=== PATIENT | male | born 1990 | race Caucasian/White ===

== ENCOUNTER → 2016-09-19 | Outpatient (CLI) | payer OTHER ==
[2016-09-19 19:01] LABS: ALBUMIN 4.5 GM/DL (3.2-5.2); ALBUMIN/GLOBULIN RATIO 1.36 (1.00-1.93); BILIRUBIN,DIRECT 0.2 MG/DL (0.0-0.2); BILIRUBIN,TOTAL 0.8 MG/DL (0.2-1.0); TOTAL PROTEIN 7.8 GM/DL (6.4-8.2)
== END ==
LOC: M LAB 16:14
PROVIDERS: ATTEND Family Medicine
DX: F11.20 Opioid dependence, uncomplicated (principal)

== ENCOUNTER → 2019-02-20 | Outpatient (CLI) | payer BC ==
[2019-02-20 15:05] LABS: HEMATOCRIT 39.6 % (42.0-52.0); HEMOGLOBIN 13.2 g/dl (13.5-17.5); MEAN CORPUSCULAR HGB CONC 33.3 g/dl (32.0-36.5); MEAN CORPUSCULAR VOLUME 81.1 fl (80.0-96.0); PLATELET COUNT, AUTOMATED 255 10^3/uL (150-450); RED BLOOD COUNT 4.88 10^6/uL (4.30-6.10); WHITE BLOOD COUNT 6.7 10^3/uL (4.0-10.0)
--- NOTE | 2019-02-20 15:17 | REP ---
REASON FOR EXAM: Hypothyroidism and anemia. COMPARISON: Multiple, the latest frontal view of the chest obtained as part of a rib series on 08/17/2013. FINDINGS: The superior mediastinal structures are midline. The cardiac silhouette is unremarkable in size, shape, and position. The diaphragmatic surfaces of the lungs are regular, and the costophrenic angles are clear. The pulmonary kinsey are clear. The imaged osseous structures are intact. IMPRESSION: There is no acute cardiopulmonary disease. Electronically Signed by Charan Galarza DO 02/20/2019 03:34 P
[2019-02-20 15:42] LABS: ALBUMIN 4.3 GM/DL (3.2-5.2); ALT/SGPT 38 U/L (12-78); BLOOD UREA NITROGEN 13 MG/DL (7-18); CARBON DIOXIDE LEVEL 29 MEQ/L (21-32); CHLORIDE LEVEL 103 MEQ/L (98-107); CHOLESTEROL LEVEL 141 MG/DL (<200); CHOLESTEROL RISK RATIO 3.279 (<5); CREATININE FOR GFR 0.96 MG/DL (0.70-1.30); GLOMERULAR FILTRATION RATE > 60.0 (>60); GLUCOSE, FASTING 79 MG/DL (70-100); HDL CHOLESTEROL 43 MG/DL (>40); LDL CHOLESTEROL 61 MG/DL (<100); NON-HDL-C 98 MG/DL; SODIUM LEVEL 138 MEQ/L (136-145); TOTAL PROTEIN 7.7 GM/DL (6.4-8.2); TRIGLYCERIDES LEVEL 184 MG/DL (<150)
[2019-02-20 15:45] LABS: TOTAL 25(OH) VITAMIN D 24.2 NG/ML (30.0-100.0)
--- NOTE | 2019-02-20 17:19 | ECGEPIP ---
[facility] Test Date: 2019-02-20 Pat Name: LINDSEY HURTADO Department: Room: - Gender: Male Wedger Machine: PEG : 1990 Requested By: Cassandra Burdick Order Number: [id number] Reading MD: Johnny Robledo Measurements Intervals [place] Rate: 85 P: 55 TN: 143 QRS: 20 QRSD: 114 T: 60 QT: 360 QTc: 428 Interpretive Statements Normal sinus rhythm with sinus arrhythmia Intraventricular conduction delay Comparison tracing not on file Electronically Signed on 02-20-2019 17:18:55 EDT by Johnny Robledo
== END ==
LOC: M LAB 14:21
PROVIDERS: ATTEND Family Medicine
DX: D64.9 Anemia, unspecified (principal); E03.9 Hypothyroidism, unspecified; I10 Essential (primary) hypertension

== ENCOUNTER → 2022-01-17 | Outpatient (CLI) | payer OTHER ==
[2022-01-17 17:55] LABS: BASO # 0.1 10^3/uL (0.0-0.2); BASO % 0.8 % (0.0-1.0); EOS # 0.3 10^3/uL (0.0-0.5); EOS % 4.4 % (0.0-3.0); HEMATOCRIT 43.1 % (42.0-52.0); HEMATOCRIT 43.6 % (42.0-52.0); HEMOGLOBIN 14.3 g/dl (13.5-17.5); LYMPH # 3.1 10^3/uL (1.5-5.0); MEAN CORPUSCULAR HGB CONC 33.2 g/dl (32.0-36.5); MEAN CORPUSCULAR VOLUME 84.3 fl (80.0-96.0); MONO # 0.6 10^3/uL (0.0-0.8); MONO % 7.5 % (2.0-8.0); NEUTROPHILS # 3.5 10^3/uL (1.5-8.5); NEUTROPHILS % 45.9 % (36.0-66.0); PLATELET COUNT, AUTOMATED 256 10^3/uL (150-450); RED BLOOD COUNT 5.11 10^6/uL (4.30-6.10); WHITE BLOOD COUNT 7.5 10^3/uL (4.0-10.0)
[2022-01-17 18:14] LABS: PERCENT SATURATION 28.1 % (19.7-50.0)
[2022-01-17 18:22] LABS: TOTAL 25(OH) VITAMIN D 40.1 NG/ML (30.0-100.0)
[2022-01-17 19:01] LABS: HEPATITIS C VIRUS ABY INDEX 0.1 INDEX (<0.8)
== END ==
LOC: M LAB 16:43
PROVIDERS: ATTEND Physician Assistant Medical
DX: Z83.49 Family history of other endocrine, nutritional and metabolic diseases (principal); Z84.0 Family history of diseases of the skin and subcutaneous tissue; E55.9 Vitamin D deficiency, unspecified; D64.9 Anemia, unspecified; Z11.59 Encounter for screening for other viral diseases

== ENCOUNTER 2023-10-20 19:33 | Observation (INO) | payer OTHER ==
[~2023-10-20] VITALS: Ht 165.1 cm; Wt 61.8 kg
[2023-10-20 20:28] LABS: BASO # 0.1 10^3/uL (0.0-0.2); BASO % 1.2 % (0.0-1.0); EOS # 0.1 10^3/uL (0.0-0.5); HEMATOCRIT 42.8 % (42.0-52.0); HEMOGLOBIN 14.2 g/dl (13.5-17.5); LYMPH # 2.6 10^3/uL (1.5-5.0); LYMPH % 27.3 % (24.0-44.0); MEAN CORPUSCULAR HEMOGLOBIN 27.6 pg (27.0-33.0); MEAN CORPUSCULAR HGB CONC 33.2 g/dl (32.0-36.5); MEAN CORPUSCULAR VOLUME 83.3 fl (80.0-96.0); MONO # 0.8 10^3/uL (0.0-0.8); MONO % 8.2 % (2.0-8.0); NEUTROPHILS # 5.9 10^3/uL (1.5-8.5); NEUTROPHILS % 62.2 % (36.0-66.0); PLATELET COUNT, AUTOMATED 311 10^3/uL (150-450); RED BLOOD COUNT 5.14 10^6/uL (4.30-6.10); WHITE BLOOD COUNT 9.4 10^3/uL (4.0-10.0)
[2023-10-20] MEDS ORDERED: CHARCOAL ACTIVATED LIQUID 25GM/120ML BTL As Ordered ONE (20:36)
[2023-10-20] MEDS: NS 1,000 ML IV ONE (20:37)
[2023-10-20 20:43] LABS: ETHYL ALCOHOL (ETHANOL) 0.004 % (0.000-0.010)
[2023-10-20 20:45] LABS: ALBUMIN 4.7 G/DL (3.2-5.2); ALKALINE PHOSPHATASE 68 U/L (46-116); ALT/SGPT 21 U/L (7.0-40); AST/SGOT 26 U/L (<34); BILIRUBIN,DIRECT 0.8 MG/DL (<0.4); BILIRUBIN,TOTAL 2.1 MG/DL (0.3-1.2); BLOOD UREA NITROGEN 18 MG/DL (9-23); CALCIUM LEVEL 9.5 MG/DL (8.5-10.1); CARBON DIOXIDE LEVEL 30 MMOL/L (20-31); CHLORIDE LEVEL 104 MMOL/L (98-107); CREATININE FOR GFR 1.26 MG/DL (0.70-1.30); GLOMERULAR FILTRATION RATE > 60.0 (>60); GLUCOSE, FASTING 84 MG/DL (60-100); POTASSIUM SERUM 3.9 MMOL/L (3.5-5.1); SALICYLATE LEVEL < 3.0 MG/DL (<30); SODIUM LEVEL 138 MMOL/L (136-145)
[2023-10-20 20:47] LABS: THYROID STIMULATING HORMONE 1.593 uIU/ML (0.55-4.78)
[2023-10-20 20:50] LABS: CPK CREATINE PHOSPHOKINASE 399 U/L (46-171)
[2023-10-20 20:55] LABS: RSV AMPLIFICATION NEGATIVE (NEGATIVE)
[2023-10-20] MEDS: CHARCOAL ACTIVATED LIQUID 25GM/120ML BTL PO SCH (21:12)
[2023-10-20] MEDS: LORazepam 2 MG/ML 1ML VIAL IV STA (21:39)
[2023-10-21 01:33] LABS: BENZODIAZEPINES URINE NEGATIVE (NEGATIVE)
[2023-10-21 01:34] LABS: AMPHETAMINES LEVEL URINE POSITIVE (NEGATIVE); BARBITURATES URINE NEGATIVE (NEGATIVE); CANNABINOIDS URINE NEGATIVE (NEGATIVE); COCAINE METABOLITE URINE NEGATIVE (NEGATIVE); METHADONE URINE NEGATIVE (NEGATIVE); OPIATES URINE NEGATIVE (NEGATIVE); PHENCYCLIDINE URINE NEGATIVE (NEGATIVE)
[2023-10-21] MEDS ORDERED: BUPR150T12 PO (01:56)
[2023-10-21] MEDS ORDERED: BUPR1FIL3 SL (01:56)
[2023-10-21] MEDS ORDERED: med rec comment (02:01)
[2023-10-21] MEDS ORDERED: HOME MED LIST COMPLETE! XX SCH (02:05)
[2023-10-21] MEDS ORDERED: LORazepam 2 MG/ML 1ML VIAL IV PRN (07:00)
[2023-10-21] MEDS: ENOXAPARIN 40MG/0.4ML SYRINGE (J1650 PER 10MG) SC SCH (09:00)
[2023-10-21 09:22] VITALS: BP 110/60; TEMP 98.2; O2SAT 98
[2023-10-21 14:00] VITALS: BP 135/90; TEMP 98.6; O2SAT 99
[2023-10-21] MEDS ORDERED: PILL CUTTER 1 EACH XX ONE (14:22)
[2023-10-21] MEDS: BUPRENORPHINE/NALOXONE 8-2MG SUBLINGUAL TABLET(SUBOXONE) SL SCH (14:48)
[2023-10-21] MEDS: HALOPERIDOL 5MG/ML 1ML VIAL IV PRN (16:05)
[2023-10-21] MEDS: SENNA 8.6 MG TAB (SENOKOT) PO SCH (19:52)
[2023-10-21 19:53] VITALS: BP 111/61; TEMP 98.4; O2SAT 99
[2023-10-22 05:14] VITALS: BP 120/67; TEMP 98.4; O2SAT 99
[2023-10-22 14:00] VITALS: BP 117/71; TEMP 98.4; O2SAT 100
== END 2023-10-22 17:27 | disposition home or self-care (01) ==
LOC: M ED 19:33 → M ED INP 19:34 → INTOOBSV 10-21 02:36 → M ED INP 10-21 02:36 → UNDOADMOB 10-21 02:36 → M MSPAV 10-21 09:22 → M ED INP 10-21 09:22 → M MSPAV 10-21 09:22
PROVIDERS: ADMIT Family Medicine; ATTEND Internal Medicine Nephrology
DX: T43.651A Poisoning by methamphetamines accidental (unintentional), initial encounter (principal); F15.159 Other stimulant abuse with stimulant-induced psychotic disorder, unspecified; F11.21 Opioid dependence, in remission; F90.9 Attention-deficit hyperactivity disorder, unspecified type; F41.9 Anxiety disorder, unspecified; F17.200 Nicotine dependence, unspecified, uncomplicated; Z88.1 Allergy status to other antibiotic agents; Z88.2 Allergy status to sulfonamides; Z79.899 Other long term (current) drug therapy
CPT/HCPCS: 51702; 80048; 80076; 80143; 80307; 82077; 82550; 84443; 85025; 87631; 93005; 93041; 94760; 96374; 96375; 99285; J1630; J2060

== ENCOUNTER → 2023-10-25 | Outpatient (CLI) | payer MEDICAID ==
[~2023-10-25] MED LIST: BUPR150T12 PO; BUPR1FIL3 SL; med rec comment
== END ==
LOC: M OUTALCOH 09:33
PROVIDERS: ATTEND Psychiatry & Neurology Psychiatry
DX: Z13.39 Encounter for screening examination for other mental health and behavioral disorders (principal)

== ENCOUNTER → 2024-07-01 | Outpatient (CLI) | payer MEDICAID | LOC: M OUTALCOH 10:02 | PROVIDERS: ATTEND Psychiatry & Neurology Psychiatry | DX: F15.20 Other stimulant dependence, uncomplicated (principal); F11.20 Opioid dependence, uncomplicated ==

== ENCOUNTER 2024-07-30 16:00 | Outpatient (RCR) | payer MEDICAID | END 2024-08-02 | LOC: M OUTALCOH 16:00 | PROVIDERS: ATTEND Psychiatry & Neurology Psychiatry | DX: F15.20 Other stimulant dependence, uncomplicated (principal); F11.20 Opioid dependence, uncomplicated ==

== ENCOUNTER 2024-08-20 14:59 | Outpatient (RCR) | payer MEDICAID | END 2024-09-02 | LOC: M OUTALCOH 14:59 | PROVIDERS: ATTEND Psychiatry & Neurology Psychiatry | DX: F11.20 Opioid dependence, uncomplicated (principal); F15.20 Other stimulant dependence, uncomplicated ==

== ENCOUNTER 2024-09-29 16:00 | Outpatient (RCR) | payer MEDICAID | END 2024-10-03 | LOC: M OUTALCOH 16:00 | PROVIDERS: ATTEND Psychiatry & Neurology Psychiatry | DX: F11.20 Opioid dependence, uncomplicated (principal); F15.20 Other stimulant dependence, uncomplicated ==

== ENCOUNTER 2024-10-29 16:00 | Outpatient (RCR) | payer MEDICAID | END 2024-10-31 | LOC: M OUTALCOH 16:00 | PROVIDERS: ATTEND Psychiatry & Neurology Psychiatry | DX: F11.20 Opioid dependence, uncomplicated (principal); F15.20 Other stimulant dependence, uncomplicated ==

== ENCOUNTER → 2024-12-01 | Outpatient (RCR) | payer MEDICAID | LOC: M OUTALCOH 11-03 09:05 | PROVIDERS: ATTEND Psychiatry & Neurology Psychiatry | DX: F15.20 Other stimulant dependence, uncomplicated (principal); F11.20 Opioid dependence, uncomplicated ==

== ENCOUNTER 2024-12-29 08:07 | Outpatient (RCR) | payer MEDICAID | END 2024-12-31 | LOC: M OUTALCOH 08:07 | PROVIDERS: ATTEND Psychiatry & Neurology Psychiatry | DX: F15.20 Other stimulant dependence, uncomplicated (principal); F11.20 Opioid dependence, uncomplicated ==

== ENCOUNTER 2025-04-15 14:00 | Outpatient (RCR) | payer MEDICAID | END 2025-05-03 | LOC: M OUTALCOH 14:00 | PROVIDERS: ATTEND Psychiatry & Neurology Psychiatry | DX: F11.20 Opioid dependence, uncomplicated (principal); F15.20 Other stimulant dependence, uncomplicated ==

== ENCOUNTER → 2025-06-02 | Outpatient (RCR) | payer MEDICAID | LOC: M OUTALCOH 05-11 08:33 | PROVIDERS: ATTEND Psychiatry & Neurology Psychiatry | DX: F15.20 Other stimulant dependence, uncomplicated (principal); F11.20 Opioid dependence, uncomplicated ==

== ENCOUNTER 2025-06-15 10:12 | Outpatient (RCR) | payer MEDICAID | END 2025-07-03 | LOC: M OUTALCOH 10:12 | PROVIDERS: ATTEND Psychiatry & Neurology Psychiatry | DX: F15.20 Other stimulant dependence, uncomplicated (principal); F11.20 Opioid dependence, uncomplicated ==

== ENCOUNTER 2025-07-14 10:00 | Outpatient (RCR) | payer MEDICAID | END 2025-08-02 | LOC: M OUTALCOH 10:00 | PROVIDERS: ATTEND Psychiatry & Neurology Psychiatry | DX: F15.20 Other stimulant dependence, uncomplicated (principal); F11.20 Opioid dependence, uncomplicated ==

== ENCOUNTER 2025-08-10 09:51 | Outpatient (RCR) | payer MEDICAID | END 2025-09-02 | LOC: M OUTALCOH 09:51 | PROVIDERS: ATTEND Psychiatry & Neurology Psychiatry | DX: F15.20 Other stimulant dependence, uncomplicated (principal); F11.20 Opioid dependence, uncomplicated ==